=== PATIENT | male | born 1985 | race Caucasian/White ===

== ENCOUNTER → 2016-11-27 | Outpatient (CLI) | payer OTHER | LOC: CIMAGING 15:33 | PROVIDERS: ATTEND Internal Medicine | DX: N43.3 Hydrocele, unspecified (principal); N50.3 Cyst of epididymis; N40.0 Benign prostatic hyperplasia without lower urinary tract symptoms; N41.9 Inflammatory disease of prostate, unspecified; R53.83 Other fatigue | CPT/HCPCS: 76870-PO ==